=== PATIENT | male | born 1950 | race Caucasian/White ===

== ENCOUNTER → 2023-08-09 07:30 | Outpatient (REF) | payer MEDICARE, OTHER, SELFPAY | LOC: HWRAD 07:30 | PROVIDERS: ATTENDING PHYSICIAN Internal Medicine Critical Care Medicine; FAMILY PHYSICIAN Family Medicine | DX: R91.1 Solitary pulmonary nodule (principal) | CPT/HCPCS: 71250 ==

== ENCOUNTER → 2023-12-14 05:57 | Day surgery (SDC) | payer MEDICARE, OTHER, SELFPAY | LOC: GI 05:57 | PROVIDERS: ATTENDING PHYSICIAN Internal Medicine Gastroenterology | DX: Z12.11 Encounter for screening for malignant neoplasm of colon (principal); K57.30 Diverticulosis of large intestine without perforation or abscess without bleeding; K64.8 Other hemorrhoids; K62.1 Rectal polyp; K63.5 Polyp of colon | CPT/HCPCS: 45380; 88305 ==

== ENCOUNTER → 2024-02-07 19:44 | Outpatient (REF) | payer MEDICARE, OTHER, SELFPAY | LOC: MRI 19:44 | PROVIDERS: ATTENDING PHYSICIAN Urology; FAMILY PHYSICIAN Family Medicine | DX: N28.89 Other specified disorders of kidney and ureter (principal) | CPT/HCPCS: 74183; A9575 ==

== ENCOUNTER → 2024-08-13 07:51 | Outpatient (REF) | payer MEDICARE, OTHER, SELFPAY | LOC: MRI 3T 07:51 | PROVIDERS: ATTENDING PHYSICIAN Urology; FAMILY PHYSICIAN Family Medicine | DX: R97.20 Elevated prostate specific antigen [PSA] (principal) | CPT/HCPCS: 72197; A9575 ==

== ENCOUNTER → 2024-08-28 08:09 | Outpatient (REF) | payer MEDICARE, OTHER, SELFPAY | LOC: HWRAD 08:09 | PROVIDERS: ATTENDING PHYSICIAN Internal Medicine Critical Care Medicine; FAMILY PHYSICIAN Family Medicine | DX: Z87.891 Personal history of nicotine dependence (principal) | CPT/HCPCS: 71271 ==

== ENCOUNTER → 2024-09-22 10:01 | Outpatient (REF) | payer MEDICARE, OTHER, SELFPAY | LOC: CLAB 10:01 | PROVIDERS: ATTENDING PHYSICIAN Urology | DX: R97.20 Elevated prostate specific antigen [PSA] (principal) | CPT/HCPCS: 88305; 88344 ==

== ENCOUNTER → 2024-11-05 06:58 | Outpatient (REF) | payer MEDICARE, OTHER, SELFPAY | LOC: RAD 06:58 | PROVIDERS: ATTENDING PHYSICIAN Surgery Vascular Surgery; FAMILY PHYSICIAN Family Medicine | DX: I71.43 Infrarenal abdominal aortic aneurysm, without rupture (principal) | CPT/HCPCS: 74174; Q9967 ==

== ENCOUNTER → 2024-11-26 12:53 | Outpatient (REF) | payer MEDICARE, OTHER, SELFPAY | LOC: HWRCS 12:53 | PROVIDERS: ATTENDING PHYSICIAN Internal Medicine Cardiovascular Disease; FAMILY PHYSICIAN Family Medicine | DX: Z01.818 Encounter for other preprocedural examination (principal); I71.43 Infrarenal abdominal aortic aneurysm, without rupture; I10 Essential (primary) hypertension; I35.0 Nonrheumatic aortic (valve) stenosis | CPT/HCPCS: 93306 ==

== ENCOUNTER → 2024-12-05 11:47 | Outpatient (REF) | payer MEDICARE, OTHER, SELFPAY | LOC: RCS 11:47 | PROVIDERS: ATTENDING PHYSICIAN Internal Medicine Cardiovascular Disease; FAMILY PHYSICIAN Family Medicine | DX: I35.0 Nonrheumatic aortic (valve) stenosis (principal); Z01.818 Encounter for other preprocedural examination; R07.89 Other chest pain | CPT/HCPCS: 78452; 93017; A9500; J2785 ==

== ENCOUNTER 2024-12-10 06:16 | Inpatient (IN) | payer MEDICARE, OTHER, SELFPAY ==
[2024-12-05 09:39] VITALS: BMI 32.6
[2024-12-05 09:59] LABS: Hematocrit 45.0 % (39.0-52.0); Hemoglobin 15.1 g/dL (13.0-18.0); Mean Corp Hgb Conc. 33.6 g/dL (33.0-37.0); Mean Corpuscular Volume 90.5 fL (80.0-94.0); Nucleated Red Blood Cells % 0 % (-); Platelet Count 171 10^3/uL (130-400); Red Cell Dist. Width 13.0 % (11.5-14.5)
[2024-12-05 10:07] LABS: INR 1.15; PT 15.0 Sec (11.4-14.6)
[2024-12-05 10:08] LABS: APTT 36.7 Sec (23.4-35.0)
[2024-12-05 10:22] LABS: Blood Urea Nitrogen 19 mg/dl (9-20); Calcium 8.7 mg/dl (8.4-10.2); Carbon Dioxide 30 mmol/L (22-30); Chloride 109 mmol/L (98-107); Estimated Creatinine Clearance 85 ml/min; Glucose 109 mg/dl (70-99); Potassium 4.7 mmol/L (3.5-5.1); Sodium 142 mmol/L (135-145); eGFR > 60.00
[2024-12-10] VITALS (34 sets, daily range): BP systolic 127–183; BP diastolic 60–99; BMI 32.5
[2024-12-10] MEDS: BACTROBAN NASAL 1 GRAM NASAL (06:48)
[2024-12-10] MEDS: NSS 500 IV (06:48)
[2024-12-10] MEDS: PERIDEX 0.12% ORAL RINSE 15 ML PO (06:48)
--- NOTE | 2024-12-10 06:50 | W.SUR.PREOP ---
Pre-Operative Surgical Note
-
I have examined this patient prior to the performance of the scheduled procedure.
The patient's condition is unchanged from the time of the current History and
Physical and the patient is able to undergo the scheduled procedure.
[2024-12-10] MEDS: DILAUDID 0.25 MG IV ×2 (10:31→10:43)
--- NOTE | 2024-12-10 10:34 | W.SUR.POST ---
Surgical Immediate Post Op
Note
Pre Op Diagnosis: AAA
Post Op Diagnosis: AAA
Procedure Performed: EVAR
Primary Surgeon: Clif Rowland M.D.
Secondary Surgeons: N/A
Anesthesia: GETA
Estimated Blood Loss: 10 mL
Fluids: See anesthesia flowsheet
Drains/Shunts: N/A
Specimens/Cultures: N/A
Doppler/Duplex/Angio (Y/N): Y
Complications: None
Operative Findings: Successful exclusion of AAA via endovascular repair, with palpable distal pulses following case
[2024-12-10 10:49] LABS: Hematocrit 39.5 % (39.0-52.0); Hemoglobin 13.4 g/dL (13.0-18.0); Mean Corp Hgb Conc. 33.9 g/dL (33.0-37.0); Mean Corpuscular Volume 89.8 fL (80.0-94.0); Platelet Count 130 10^3/uL (130-400); Red Cell Dist. Width 12.9 % (11.5-14.5)
[2024-12-10] MEDS: NSS 1000 IV ×2 (10:49→20:35)
[2024-12-10 10:54] LABS: Blood Urea Nitrogen 14 mg/dl (9-20); Calcium 7.6 mg/dl (8.4-10.2); Carbon Dioxide 22 mmol/L (22-30); Chloride 111 mmol/L (98-107); Estimated Creatinine Clearance > 125 ml/min; Glucose 135 mg/dl (70-99); Potassium 4.6 mmol/L (3.5-5.1); Sodium 136 mmol/L (135-145); eGFR > 60.00
--- NOTE | 2024-12-10 12:46 | CON.INTV ---
Consultation
Consultation Request
Date/Time Consultation Requested: 12/10/2024
Date/Time Consultation Performed: 12/10/2024
Medical History
-
Chief Complaint: Enlarging AAA
History of Present Illness:
Patient is a very pleasant 74-year-old gentleman who was noted to have enlarging AAA and was seen by vascular surgery as outpatient. Endovascular aneurysmal repair was recommended and patient was admitted to the hospital for the procedure.
Postprocedure, he was admitted to the ICU and button puncher consultation was requested for further input.
PAST MEDICAL HISTORY: History of DVT and PE in 2010, COPD,
essential hypertension, hyperlipidemia, abdominal aortic aneurysm
measuring 4.5 cm, history of left lower lobe lung nodule status post
resection in July 2019 which was found to be an intraparenchymal
lymph node.
SOCIAL HISTORY: Patient is a former smoker, but quit in 2010
following his PE. He denies any alcohol abuse.
Family history. Noncontributory
Allergies / Home Medications
Allergies
Allergy/AdvReac Type Severity Reaction Status Date / Time
valacyclovir Allergy Unknown Unknown Verified 12/10/24 06:47
hydrocodone (From Vicodin) AdvReac Unknown Pharmacy Verified 12/10/24 06:47
to Review
Home Medications
�Medication �Instructions �Recorded �Confirmed �Last Taken �Type
atorvastatin 20 mg tablet 20 mg PO HS High cholesterol 08/05/19 12/10/24 12/09/24 21:00 History
umeclidinium 62.5 mcg-vilanterol 1 ea IH R DAILY Lung/breathing 08/05/19 12/10/24 12/10/24 05:00 History
25 mcg/actuation powdr for issues ##0
inhalation (Anoro Ellipta)
albuterol sulfate 90 mcg/actuation 2 puff inhalation R Q6HPRN PRN sob 12/04/19 12/10/24 11/25/24 14:00 History
aerosol inhaler
apixaban 5 mg tablet (Eliquis) 5 mg PO BID 12/02/20 12/10/24 12/07/24 19:00 History
acetaminophen 325 mg tablet 650 mg PO Q4H PRN pain 12/03/24 12/10/24 12/03/24 13:00 History
(Tylenol)
ezetimibe 10 mg tablet 10 mg PO QPM 12/03/24 12/10/24 12/09/24 19:00 History
losartan 100 mg tablet 100 mg PO QPM 12/03/24 12/10/24 12/09/24 19:00 History
Review of Systems
-
Hematologic/Lymphatic: Other (All 14 systems reviewed and negative except as stated above in the history of present illness.)
Vitals / Labs / Diagnostic Testing
Vital Signs
Temp Pulse Resp BP Pulse Ox
97.3 F 67 12 135/76 99
12/10/24 11:25 12/10/24 10:45 12/10/24 10:45 12/10/24 10:30 12/10/24 10:58
Lab Data
12/10/24 10:24
12/10/24 10:24
Diagnostic Testing:
Physical Exam
-
HEENT: Normocephalic
Cardiovascular: S1/S2
Respiratory: Clear and Non-Labored Respirations
GI: Soft and Non Distended
Neurology: Awake and Alert
Skin: Warm
General: Comfortable
Assessment
-
74-year-old gentleman with known history of AAA, s/p endovascular aneurysmal repair (EVAR) by vascular surgery service, POD #0
Continue observation following procedure
Follow neurovascular checks per protocol
Not on any antiplatelet agents currently. Currently on losartan and Lipitor.
Follow BP monitoring and parameters as set by primary team
Cardiac history noted
Monitor on telemetry
Pain control per protocol
RASS goal 0
Known history of emphysema, pulmonary nodules
CXR reviewed indicating no acute disease
Encouraged IS
Diet advancement per protocol
Aspiration precautions
GI prophylaxis, not needed
Creat at baseline, follow UO
Critical I/Os
Void trials
Replete electrolytes as needed
No signs/symptoms suspicious for infectious etiology at this time
Will observe off antibiotics for now
Follow temperatures/CBC
Hb and platelets postoperatively stable
DVT prophylaxis: Subcu heparin
Encouraged OOB/PT/OT/ambulation once cleared by surgical team
Other medical diagnoses:
- Pulmonary hypertension, mild. Estimated pulmonary artery pressure 35 on echocardiogram. 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 Might have concomitant component of group 3 also with underlying lung disease
- Pulmonary Nodules. 6-8 mm, stable over serial imaging. LDCT yearly as out patient
- Emphysema/COPD. Resume Anoro at discharge. Continue LAMA/LABA while in hospital. As needed albuterol in addition. Resume follow-up with [facility] pulmonary clinic.
- Prostate CA. Newly diagnosed. Localized.
- H/o DVT//PE (2010). Patient is on long-term Eliquis
- HTN, HLD
- LLL nodule resection (intraparenchymal lymph node)
- History of smoking. Quit in 2010. Resume f/u with [facility] pulmonary clinic for on going yearly LDCT
Critical Care time 62 mins -- The patient is admitted for acute critical illness for the treatment of vital organ failure and/or prevention of further life-threatening conditions. Total care includes time spent in review of history, physical exam,
medications, hemodynamic/ventilator parameters, laboratory data, imaging and discussion with house staff, pharmacy, respiratory therapy, outreach manager, and nursing.
Data:
CXR 11/2024: Postsurgical changes in left lower lobe, otherwise unremarkable.
Lexiscan 11/2024: Small predominantly fixed basal and mid inferior and inferolateral defect that disappears with prone imaging. No evidence of ischemia. Overall the study is normal.
Inconclusive ECG for ischemia given the pharmacological study.
Systolic function is normal. The ejection fraction is 57%.
Stress Risk is moderate due to pharmacologic agent used.
ECHO 11/2024: Normal left ventricular chamber size with hyperdynamic left ventricular
systolic function; left ventricular ejection fraction is 75%. Normal regional
wall motion. Moderate concentric left ventricular hypertrophy. No significant
LVOT obstruction. Stage I diastolic dysfunction suggestive of abnormal relaxation.
Normal right ventricular size and function. Mild mitral regurgitation.
Calcified, trileaflet aortic valve with peak and mean gradients 17 and 10 mmHg,
respectively. Estimated DIPTI is 1.9 cm., using an LVOT of 2.0 cm. Mild aortic
stenosis. Mild aortic regurgitation.
Mild tricuspid regurgitation. Estimated pulmonary artery pressure of 35 mmHg,
assuming a right atrial pressure of 3 mmHg.
Borderline dilated aortic root with sinus of Valsalva of 4.0 cm.
Compared to previous echo 12/05/19, there is now mild aortic stenosis present.
Of note also the aortic root is now borderline dilated for body surface area.
On previous study aortic root was not well-visualized.
PET-CT 10/2024: 1. Mild prostate PSMA uptake likely correlating with the patient's known malignancy.
2. No additional focus of PSMA uptake suspicious for malignancy.
3. Approximate 2.5 cm posterior slightly high attenuation (CT) right renal lesion which has been imaged with ultrasound, CT and MR dating to 2019. Please see those separate reports.
4. 5.1 cm infrarenal abdominal aortic aneurysm stable in comparison to recent CTA November 05, 2024.
LDCT 08/2024: Stable bilateral pulmonary nodules. No CT evidence for a new or enlarging pulmonary nodule. Mild paraseptal emphysema
Pulmonary function studies-08/16/21: Spirometry demonstrated moderate obstructive lung disease. The forced vital capacity was 3.42 L or 77% of predicted. The FEV1 was 1.89 L or 58% of predicted. The FEV1/FVC ratio was 55%. There was no improvement in
the FEV1 postbronchodilator. The lung volumes revealed a normal total lung capacity of 6.22 L or 86% of predicted. There was no air trapping. The diffusing capacity was moderately reduced at 17.4 or 64% of predicted consistennt with a moderate gas
exchange deficit.
[2024-12-10 13:19] LABS: Magnesium 1.8 mg/dl (1.6-2.3)
--- NOTE | 2024-12-10 14:06 | OR.RPT ---
Operative Report
Operative Report
PROCEDURE DATE: 12/10/2024
Preoperative diagnosis: Enlarging infrarenal abdominal aortic aneurysm
Postoperative diagnosis: Same
Procedure:
1. Endovascular repair of abdominal aortic aneurysm with bifurcated modular endoprosthesis (Cook Zenith Flex with bilateral iliac limb extension.
2. Percutaneous bilateral common femoral artery closure.
3. Supervision and interpretation.
Surgeon: Kashif
Outpatient Dietitian: None
Complications: None
Anesthesia: General
Indications for procedure:
Abdominal aortic aneurysm over 5 cm in diameter (to my measurement with over 5.5 cm) with enlargement on interval follow-up. Therefore risk/benefits/alternatives of repair were discussed. Patient understood all wished to proceed.
Description of procedure:
Patient was identified brought to the operating room placed on the table in supine position. After the adequate administration of anesthesia and perioperative antibiotics he was prepped and draped in the standard surgical fashion. A standard
preoperative timeout was undertaken and everybody was in agreement the plan. Bilateral common femoral artery access was obtained under direct duplex ultrasound guidance. 6 [place] sheaths were placed over 0.035 inch wires. Note the bifurcation in
the left side was slightly high as noted on the CT scan but careful access was obtained via duplex assistance. Next, small 1 cm incisions were made around the sheath entry sites bilaterally. Blunt dissection was undertaken with hemostats to
facilitate percutaneous suture delivery. Next, using the ProGlide suture system, percutaneous sutures were deployed at the 10:00 and 2 o'clock position bilaterally in the standard fashion. Suture strands were tagged outside the skin. We exchanged
for 11 [place] sheaths bilaterally. The patient was given an appropriate dose of heparin. Next I guided wires into the supraceliac aorta from bilateral access sites. On the left side I exchanged out for a pigtail catheter which was positioned in
the juxtarenal aorta. The right side I exchanged for a Lunderquist wire. Next I exchanged my right-sided 11 Tanz[place] sheath for the aortic endograft main body/sheath which was oriented under fluoroscopy and then advanced maintaining the
contralateral gate in the anterior position. This was a TechPepper [id number] (32mm diameter bifurcated main body).
Once this was advanced to the level of the juxtarenal aorta, power injection aortography was obtained via the left-sided pigtail catheter. This was done in the appropriate obliquity based on the CT scan imaging prior. The left renal artery which
was the lower one was visualized well as was the right. These were marked on the screen. Once I was satisfied with the positioning of the stent graft, I began unsheating. I unsheathed initially the first 2 covered stents (not bare-metal
suprarenal). Once satisfied with the positioning, I withdrew the pigtail catheter down and then completed unsheating to the level of the contralateral gate which was now exposed. Satisfied with the positioning, I released the first constraint, and
then unsheathed the suprarenal bare stents.
Now I exchanged my pigtail catheter out over a flopping of hydrophilic wire for a angled KMP type catheter. Using the angled floppy hydrophilic Glidewire and the KMP type catheter, I was able to cannulate the contralateral gate. I then exchanged
the KMP catheter out once I had cannulated the gate for a pigtail catheter. I spun the pigtail catheter within and above the graft to confirm. I now placed a Lunderquist wire maintaining the pigtail catheter and placed and performed retrograde
pelvic angiogram to confirm the left-sided iliac bifurcation which was marked on the screen. I also confirmed out of the length of iliac limb but I would need. I now exchanged the pigtail catheter out and the 11 Tanz[place] sheath out of the left groin
for the contralateral limb/sheath delivery system which was a Cook [id number]. I positioned it with adequate overlap in the contralateral gate and distally landed just short of the iliac bifurcation. I unsheathed it successfully.
Once I completed this, I then withdrew that delivery device maintaining the sheath in place.
Now I turned my attention to the right side again. I released the distal constraint. I then unsheathed the remainder of the ipsilateral limb. I then captured the top And walked the delivery device off. I now performed retrograde pelvic angiogram
with pigtail in place to identify the length of iliac limb by would need. I then selected a Cook [id number]. This was then advanced through the sheath and positioned with sufficient overlap and distally just short of the iliac bifurcation.
Once satisfied I then unsheathed this graft. I was satisfied with the positioning. The delivery device for that was then walked off the wire maintaining the sheath in place.
Next a Coda balloon was used to mold the proximal and distal seal zones as well as overlap zones. A pigtail catheter was reinserted and completion angiography was performed. This demonstrated excellent positioning of the stent graft. Both renal
arteries filled well. Both external and internal iliac arteries filled well. The stent graft appeared well sealed proximally distally with no evidence of type I leaks. On delayed imaging there was no evidence of a type II leak. At this point I
was very satisfied.
Next I exchanged my pigtail catheter back for a WhistlestoperTwtBks wire. Next, I sequentially removed the sheath while cinching down the percutaneous sutures. This was initially done on the right side and then on the left. Once hemostasis was noted the
wire was then withdrawn, the knot was tightened with a knot pusher. Hemostasis was confirmed. The knot was then locked and the suture strands trimmed. This was done as noted on the right initially and then on the left. On the left side, after
the initial sheath was withdrawn and both of the suture strands were tightened, there was still some oozing. Therefore over the wire I advanced the 11 Tanzanian sheath. This was able to curb the oozing suggesting that the artery was partially closed.
Therefore I then exchanged this 11 [place] sheath out for an additional percutaneous Pro-glide suture delivery. I then delivered and deployed an additional percutaneous ProGlide suture. I then tightened this down. This appeared hemostatic now. I
therefore then withdrew my wire and tightened everything down and locked the knots. Hemostasis was fully achieved bilateral groins with good femoral pulses bilaterally. The small skin incisions were then closed with 4-0 Monocryl subcuticular
stitch and Dermabond was applied. Patient tolerated procedure well. He had palpable DP pulses bilaterally upon completion. All sponge, needle, instrument counts were correct at the end of the case. The patient was transported to the recovery
room in stable condition.
--- NOTE | 2024-12-10 16:50 | PTCARENOTE ---
Pt received from PACU into rm [id number]. Pt is Ox3 and appropriate, complaining of 3/10 back pain. Sinus rhythm on tele, + DP and radial pulses. L radial A line in place, zeroed and flushed. Currently on RA sat of 96%. Breath sounds clear throughout. Pt
tolerating regular diet without issue. Thermister villalobos in place draining clear, yellow urine. B/L groin sites with glue intact, no hematoma. Of note, pt has multiple lipoma's across his torso. Pt maintained on bedrest, bed remaining flat until 1130
and a <30� HOB restriction until 1530. IV sites intact. Q1 hour vascular checks continue. Call stokes within reach. Pt makes needs known.
[2024-12-10] MEDS: ZETIA 10 MG PO (17:35)
[2024-12-10] MEDS: COZAAR 100 MG PO (17:35)
[2024-12-10] MEDS: HEPARIN 5000 UNITS SC (20:20)
[2024-12-10] MEDS: LIPITOR 20 MG PO (20:20)
[2024-12-10] MEDS: TYLENOL 650 MG PO (20:35)
[2024-12-11] VITALS (10 sets, daily range): BP systolic 131–163; BP diastolic 58–90; BMI 32.7
--- NOTE | 2024-12-11 01:13 | PTCARENOTE ---
pt reassessed, q1h neurovascular checks continue. 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 pt offers no complaints at this time. villalobos care done. call stokes in reach.
[2024-12-11] MEDS: TUMS EX (EXTRA STRENGTH) CHEWABLE TABLET 600 MG PO ×2 (01:43→05:59)
[2024-12-11 04:55] LABS: Hematocrit 40.8 % (39.0-52.0); Hemoglobin 13.8 g/dL (13.0-18.0); Mean Corp Hgb Conc. 33.8 g/dL (33.0-37.0); Mean Corpuscular Volume 89.9 fL (80.0-94.0); Platelet Count 145 10^3/uL (130-400); Red Cell Dist. Width 13.0 % (11.5-14.5)
[2024-12-11 05:01] LABS: INR 1.06; PT 14.3 Sec (11.4-14.6)
[2024-12-11 05:02] LABS: APTT 31.9 Sec (23.4-35.0)
[2024-12-11 05:13] LABS: Blood Urea Nitrogen 17 mg/dl (9-20); Calcium 8.5 mg/dl (8.4-10.2); Carbon Dioxide 27 mmol/L (22-30); Chloride 106 mmol/L (98-107); Estimated Creatinine Clearance 109 ml/min; Glucose 135 mg/dl (70-99); Potassium 4.5 mmol/L (3.5-5.1); Sodium 138 mmol/L (135-145); eGFR > 60.00
--- NOTE | 2024-12-11 06:03 | PTCARENOTE ---
AM labs sent. neurovascular checks ongoing without change overnight. call stokes in reach.
--- NOTE | 2024-12-11 07:35 | W.PN.VS ---
Today's Communication / Plan
-
Patient seen and examined at bedside with Dr. Clif Rowland M.D., below plan reviewed with attending.
Assessment/Plan
-
Assessment: 74-year-old male POD #1 EVAR
Plan:
Discontinue IV fluid
Discontinue arterial line
Discontinue Buenrostro catheter
Can restart home oral anticoagulation, will add aspirin 81 mg p.o. daily for antiplatelet
OOB to chair with progression to ambulation as tolerated
Encourage incentive spirometry
Possible discharge later this afternoon pending patient progression
Subjective Data
-
Date of Service: December 11, 2024
Patient seen and examined at bedside, offers no complaints. Denies nausea, vomiting, fever, and chills. Does endorse GERD like burning sensation in epigastric area that resolved with Tums prescribed overnight, denies jaw pain, left arm pain,
persistent chest pain, or radiating to back. Denies abdominal pain.
Objective Data
-
Vital Signs
Temp Pulse Resp BP Pulse Ox
98.1 F 81 12 149/76 96
12/11/24 03:55 12/11/24 06:00 12/11/24 06:00 12/11/24 05:31 12/11/24 06:00
Intake and Output
12/10/24 12/11/24 12/12/24
06:59 06:59 06:59
Intake Total 1880 / 1880
Output Total 2255 / 2255
Balance -375 / -375
Intake:
Oral fluids 720 / 720
IV fluids (Total) 1160 / 1160
Normosal 200 / 200
Nss 1,000 ml @ 80 mls/hr IV . 960 / 960
[id number] SHEILA Rx#:[id number]
Output:
Urine, Buenrostro 1979 / 1979
Urine, Voided 275 / 275
Lab Results
12/11/24 04:31
12/11/24 04:31
Calcium 8.5 mg/dl (8.4-10.2) 12/11/24 04:31
Phosphorus Cancelled 12/10/24 11:27
Magnesium Cancelled 12/10/24 11:27
Physical Exam
-
No apparent distress, resting bed comfortably
No tachycardia
No dyspnea on room air
Abdomen rotund, nondistended, nontender
Bilateral groin sites with intact Exofin, clean, dry, and intact, scant area of surrounding ecchymosis, no evidence of hematoma, all surrounding compartments soft
Buenrostro draining clear urine
Bilateral DP pulse +2 palpable, feet warm
[2024-12-11] MEDS: SPIRIVA RESPIMAT 2.5 MCG 2 PUFF INH (07:41)
[2024-12-11] MEDS: STRIVERDI RESPIMAT 2 PUFF INH (07:41)
[2024-12-11] MEDS: ELIQUIS 5 MG PO (08:46)
[2024-12-11] MEDS: LOW STRENGTH ASPIRIN 81 MG PO (08:47)
--- NOTE | 2024-12-11 11:17 | PTCARENOTE ---
Updated assessment, vital signs assessment and vascular trends. Surgical team at bedside this am. Update vascular plan of cares. Will continue pod#1 teaching and follow up. Working toward discharge plan of cares. Await afternoon follow up from
vascular team. Patient ambulate room with supervision, presently oob to chair. Continue deline process. Porter mckeon'rosie await void and follow up. Patient with no c/c complaints, watching golf and resting in chair. Hourly rounds ongoing, call stokes in
reach and in use as needed.
--- NOTE | 2024-12-11 12:31 | PTCARENOTE ---
Patient at bedside. Update with vascular team await patient to void. Ambulate with staff hallway of ICU supervision only. No c/c to offer. DTV time 1500hrs. Will follow up with vascular team post void. Vital signs ongoing. Assessment unchanged.
Continue ambulationprotocols. Await lunch at this time.
--- NOTE | 2024-12-11 13:02 | PTCARENOTE ---
Update again plan of cares. 100% of lunch take. Ambulate room and hallway with staff, supervision only. Voided 350ml urine, will follow up with vascular team.
--- NOTE | 2024-12-11 13:08 | W.DS.TRANS ---
DC Summary - P[employer] Case [employer] Bench As[employer]
-
Discharge Instructions:
Discharge Diagnosis/Procedures Endovascular repair of abdominal aortic aneurysm
with bifurcated modular endoprosthesis (Cook
Zenith Flex with bilateral iliac limb extension
Diet As tolerated
Activity No strenuous activity
Driving Restrictions No driving for 1 week
Bathing Restrictions OK to Shower
Instructions:
Stand-Alone Forms: Vascular Surg Discharge Instr
Changes to Home Medications: Yes
Discharge Medications:
DC Medications w/original date entered in [email or web address]
atorvastatin 20 mg tablet 40 mg PO QPM High cholesterol 08/05/19
umeclidinium 62.5 mcg-vilanterol 25 mcg/actuation powdr for inhalation (Anoro Ellipta) 1 ea IH R DAILY Lung/breathing issues ##0 08/05/19
albuterol sulfate 90 mcg/actuation aerosol inhaler 2 puff inhalation R Q6HPRN PRN sob 12/04/19
apixaban 5 mg tablet (Eliquis) 5 mg PO BID Blood Clot Prevention/Tx 12/02/20
acetaminophen 325 mg tablet (Tylenol) 650 mg PO Q4H PRN pain 12/03/24
ezetimibe 10 mg tablet 10 mg PO QPM High Cholesterol 12/03/24
losartan 100 mg tablet 100 mg PO QPM Blood Pressure 12/03/24
aspirin 81 mg chewable tablet 81 mg PO DAILY #90 tabs 12/11/24
Home Medication Changes
Added:
aspirin 81 mg chewable tablet 81 mg PO DAILY #90 tabs 12/11/24
Pending Results: No
--- NOTE | 2024-12-11 13:44 | PTCARENOTE ---
Update with Vascular post void. Discharge teaching updated. taking information/cards for graft. Follow up appointment confirmed by patient and . Verbalizes satisfaction of cares, verbalizes understanding of discharge teaching.
--- NOTE | 2024-12-11 15:15 | CM ---
Patient discharged home with no needs per nursing.
== END 2024-12-11 13:50 | disposition home or self-care (01) | DRG 269 ==
LOC: ICU 06:16
PROVIDERS: Nurse Practitioner; ADMITTING PHYSICIAN Surgery Vascular Surgery; CONSULT PHYSICIAN Internal Medicine; PRIMARYCARE PHYSICIAN Family Medicine; REFERRING PHYSICIAN Internal Medicine Cardiovascular Disease
PROC: 04V03DZ Restriction of Abdominal Aorta with Intraluminal Device, Percutaneous Approach (ICD-10-PCS; 2024-12-10)
DX: I71.43 Infrarenal abdominal aortic aneurysm, without rupture (principal); I10 Essential (primary) hypertension; E78.5 Hyperlipidemia, unspecified; J43.9 Emphysema, unspecified; R91.8 Other nonspecific abnormal finding of lung field; I27.22 Pulmonary hypertension due to left heart disease; C61 Malignant neoplasm of prostate; Z79.01 Long term (current) use of anticoagulants; Z79.899 Other long term (current) drug therapy; Z86.711 Personal history of pulmonary embolism; Z86.718 Personal history of other venous thrombosis and embolism; Z87.891 Personal history of nicotine dependence
CPT/HCPCS: 34705; 36415; 71045; 80048; 83735; 84100; 85025; 85027; 85610; 85730; 86850; 86900; 86901; 94640; C1760; C1768; C1769; C1892; C1894; C2628; Q9967

== ENCOUNTER → 2025-01-08 06:58 | Outpatient (REF) | payer MEDICARE, OTHER, SELFPAY | LOC: RAD 06:58 | PROVIDERS: ATTENDING PHYSICIAN Registered Nurse; FAMILY PHYSICIAN Family Medicine | DX: I71.40 Abdominal aortic aneurysm, without rupture, unspecified (principal) | CPT/HCPCS: 74174; Q9967 ==